=== PATIENT | female | born 1960 | race Caucasian/White ===

== ENCOUNTER 2018-02-17 06:30 | Day surgery (SDC) | payer OTHER ==
[~2018-02-17 06:30] MED LIST: ALPRAZOLAM ER2 MG PO; QUETIAPINE FUM100 MG PO; RESTORIL30 M1 PO; TRAZODONE HCL100 MG PO; VENLAFAXINE HC150 MG PO
[2018-02-17] MEDS ORDERED: PERCOCET 5-3251 EACH PO (08:53)
[2018-02-17] MEDS ORDERED: COLACE100 MG PO (08:56)
== END 2018-02-17 22:30 | disposition home or self-care (01) ==
LOC: CIR.AMB 06:30
DX: D01.3 Carcinoma in situ of anus and anal canal (principal)